=== PATIENT | female | born 1985 | race American Indian/Alaskan Native ===

== ENCOUNTER 2018-03-08 22:37 | Emergency (ER) | payer MEDICAID, OTHER ==
[2018-03-08 23:56] LABS: Basophils % (Auto) 0.6 % (0.0-1.8); Eosinophils % (Auto) 0.1 % (0.0-4.3); Hematocrit 39.3 % (30.3-42.9); Lymphocytes % (Auto) 36.1 % (13.4-35.0); Mean Corpuscular HGB Conc 33 % (30-34); Mean Corpuscular Hemoglobin 26 pg (28-32); Mean Corpuscular Volume 79 fl (79-97); Monocytes # (Auto) 0.4 K/mm3 (0.0-0.8); Monocytes % (Auto) 5.3 % (0.0-7.3); Platelet Count 380 K/mm3 (140-440); Red Blood Count 5.01 M/mm3 (3.65-5.03); Red Cell Distribution Width 14.9 % (13.2-15.2)
[2018-03-09 00:01] LABS: Bilirubin,Urine NEG (Negative); Blood,Urine NEG (Negative); Color,Urine Yellow (Yellow); Mucus,Urine 1+ /HPF; Protein,Urine <15 mg/dL mg/dL (Negative); Urobilinogen,Urine < 2.0 mg/dL (<2.0)
[2018-03-09 00:17] LABS: Alanine Aminotransferase 16 units/L (7-56); Albumin 4.1 g/dL (3.9-5); BUN/Creatinine Ratio 17; Blood Urea Nitrogen 12 mg/dL (7-17); Calcium 9.4 mg/dL (8.4-10.2); Hemolysis Index 4; Lipase 27 units/L (13-60)
--- NOTE | 2018-03-09 01:48 | Cat Scan Report ---
FINAL REPORT PROCEDURE: CT ABDOMEN PELVIS W CON TECHNIQUE: Computerized axial tomography of the abdomen and pelvis was performed after the IV injection of iodinated nonionic contrast. HISTORY: right flank and RLQ abd pain COMPARISON: No prior studies are available for comparison. FINDINGS: Visualized lower thorax: No significant abnormality. Liver: Normal size and attenuation. Spleen: Normal size and attenuation. Gallbladder and biliary system: There has been a cholecystectomy. The bile ducts are normal in caliber.. Pancreas: Normal. Adrenals: Normal. Kidneys: There are no kidney stones or ureteral stones. There is no hydronephrosis.. GI tract: There is no bowel obstruction, colitis or enteritis. The appendix is normal.. Lymph nodes and mesentery: Normal. Vasculature: Normal. Bladder: Normal. Reproductive organs: There is an IUD in the uterus. There is a 2.5 centimeters cyst in the left ovary.. Peritoneum: There is no ascites or free air, abscess or adenopathy.. Musculoskeletal structures: No significant abnormality. Other: None. IMPRESSION: There has been a cholecystectomy. The bile ducts are normal in caliber.. There are no kidney stones or ureteral stones. There is no hydronephrosis.. There is no bowel obstruction, colitis or enteritis. The appendix is normal.. There is an IUD in the uterus. There is a 2.5 centimeters cyst in the left ovary.. There is no ascites or free air, abscess or adenopathy..
--- NOTE | 2018-03-09 02:01 | Emergency Department Report ---
HPI - General Chief Complaint: Abdominal Pain Time Seen by Provider: 03/08/18 23:18 - HPI HPI: 33-year-old female presents to the emergency department, driving himself in to be seen, with a complaint of a one-week history of abdominal pain that has worsened over the past 2 days. She has a dull mid abdominal pain, but more concerning to her is a sharp right-sided abdominal and flank pain that is currently 8 out of 10 in intensity. She had some nausea but has never had any vomiting. She denies any fever, dysuria, vaginal bleeding or discharge, constipation or diarrhea. She has not taken anything for symptoms. Presentation. She appears to have a history of an ovarian cyst and has a previous cholecystectomy. No recent travel or sick contacts at home. She has a primary care physician but has not seen them regarding her symptoms. ED Past Medical Hx - Past Medical History Previous Medical History?: Yes Hx Pulmonary Embolism: No Additional medical history: Ovarian cyst - Surgical History Past Surgical History?: Yes Hx Cholecystectomy: Yes (2016) - Social History Smoking Status: Never Smoker Substance Use Type: None - Medications Home Medications: Home Medications Medication Instructions Recorded Confirmed Last Taken Type traMADol [Ultram 50 MG tab] 50 mg PO Q6HR PRN #12 tablet 03/09/18 Unknown Rx ED Review of Systems ROS: Stated complaint: ABD PAIN Other details as noted in HPI Comment: All other systems reviewed and negative Constitutional: denies: chills, fever Eyes: denies: eye pain, eye discharge, vision change ENT: denies: ear pain, throat pain Respiratory: denies: cough, shortness of breath, wheezing Cardiovascular: denies: chest pain, palpitations Gastrointestinal: abdominal pain. denies: vomiting, diarrhea, constipation Genitourinary: denies: urgency, dysuria, discharge Musculoskeletal: denies: back pain, joint swelling, arthralgia Skin: denies: rash, lesions Neurological: denies: headache, weakness, paresthesias Physical Exam - Physical Exam Vital Signs: Vital Signs 03/08/18 03/08/18 03/08/18 22:57 23:31 23:43 Temperature 98.5 F Pulse Rate 76 78 Respiratory 18 18 Rate Blood Pressure 129/77 Blood Pressure 134/74 [Left] O2 Sat by Pulse 100 100 100 Oximetry 03/08/18 03/09/18 23:45 00:00 Temperature Pulse Rate 64 Respiratory 22 Rate Blood Pressure 119/36 Blood Pressure [Left] O2 Sat by Pulse 100 100 Oximetry Physical Exam: GENERAL: The patient is well-developed well-nourished. HENT: Normocephalic. Atraumatic. Patient has moist mucous membranes. EYES: Extraocular motions are intact. Pupils equal reactive to light bilaterally. NECK: Supple. Trachea is midline. CHEST/LUNGS: Clear to auscultation. There is no respiratory distress noted. HEART/CARDIOVASCULAR: Regular. There is no tachycardia. There is no murmur. ABDOMEN: Abdomen is soft. There is some reproducible right-sided abdominal and flank pain to palpation. No guarding. Patient has normal bowel sounds. There is no abdominal distention. SKIN: Skin is warm and dry. NEURO: The patient is awake, alert, and oriented. The patient is cooperative. The patient has no focal neurologic deficits. The patient has normal speech. MUSCULOSKELETAL: There is no tenderness or deformity. There is no limitation range of motion. There is no evidence of acute injury. ED Course Vital Signs 03/08/18 03/08/18 03/08/18 22:57 23:31 23:43 Temperature 98.5 F Pulse Rate 76 78 Respiratory 18 18 Rate Blood Pressure 129/77 Blood Pressure 134/74 [Left] O2 Sat by Pulse 100 100 100 Oximetry 03/08/18 03/09/18 23:45 00:00 Temperature Pulse Rate 64 Respiratory 22 Rate Blood Pressure 119/36 Blood Pressure [Left] O2 Sat by Pulse 100 100 Oximetry ED Medical Decision Making - Lab Data Result diagrams: 03/08/18 23:43 03/08/18 23:43 - Radiology Data Radiology results: report reviewed CT of the abdomen and pelvis with IV contrast shows a 2.5 cm left ovarian cyst. Shows an IUD in place. Otherwise there is no acute process. - Medical Decision Making Patient presents with a one-week history of abdominal pain that is worsened over the past 2 days. No other significant symptoms. Vital signs stable throughout her ED course and chlamydia afebrile. Labs were unremarkable including no leukocytosis, normal belly labs, no urinary tract infection and the patient is not . CT of the abdomen and pelvis with IV contrast was done that shows a left ovarian cyst but otherwise no obvious etiology of her symptoms. However she does appear safe for discharge home at this time. She' ll be given some pain medication for home and encouraged to follow up with her primary care physician. She will return to the ER with any worsening of her symptoms or any acute distress. - Differential Diagnosis nephrolithiasis, appendicitis, UTI, pyelonephritis Critical Care Time: No Critical care attestation.: If time is entered above; I have spent that time in minutes in the direct care of this critically ill patient, excluding procedure time. ED Disposition Clinical Impression: Flank pain Abdominal pain Qualifiers: Abdominal location: unspecified location Qualified Code(s): R10.9 - Unspecified abdominal pain Disposition: - TO HOME OR SELFCARE Is pt being admited?: No Condition: Stable Instructions: Abdominal Pain (ED), Flank Pain (ED) Additional Instructions: Please follow-up with your primary care physician in the next few days. Return to the emergency Department with any worsening of your symptoms or any acute distress. Prescriptions: traMADol [Ultram 50 MG tab] 50 mg PO Q6HR PRN #12 tablet PRN Reason: Pain Referrals: GASTON BUSH NP-C [Primary Care Provider] - 3-5 Days Time of Disposition: 02:08
[2018-03-09 02:28] VITALS: BP 121/65
== END 2018-03-09 02:27 | disposition home or self-care (01) ==
LOC: ED 22:37
DX: R10.30 Lower abdominal pain, unspecified (principal); Z90.49 Acquired absence of other specified parts of digestive tract
CPT/HCPCS: 36415; 74177; 80053; 81001; 83690; 84703; 85025; 99284; Q9967